=== PATIENT | female | born 1985 | race Caucasian/White ===

== ENCOUNTER → 2024-06-13 12:29 | Outpatient (REF) | payer OTHER, MEDICARE, SELFPAY | LOC: HWRCS 12:29 | PROVIDERS: ATTENDING PHYSICIAN Internal Medicine Cardiovascular Disease; FAMILY PHYSICIAN Family Medicine | DX: R06.02 Shortness of breath (principal); R01.1 Cardiac murmur, unspecified; Q90.9 Down syndrome, unspecified | CPT/HCPCS: 93306 ==